=== PATIENT | female | born 1965 | race Caucasian/White ===

== ENCOUNTER 2019-08-12 09:33 | Emergency (ER) | payer BC ==
--- OUTSIDE RECORDS SUMMARY | 2019-08-12 09:39 | XMS REPORT | Continuity of Care Document ---
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 No Information Available Social History Type Date Description Comments Sex Unknown Tobacco Use Start: Unknown Never Smoked Cigarettes Smoking Status Reviewed: 08/04/19 Never Smoked Cigarettes ETOH Use Occasionally consumes alcohol Tobacco Use Start: Unknown Patient has never smoked Recreational Drug Use Never Used Drugs Exercise Type/Frequency Exercises regularly Allergies, Adverse Reactions, Alerts Active Allergies Reaction Severity Comments Date Amoxicillin Itching 08/04/2019 Medications Active Medications SIG Qnty Indications Ordering Provider Date Multi Vitamin 1 by mouth every Unknown Tablets day Immunizations Description No Information Available Vital Signs Date Vital Result Comment 08/04/2019 7:57am Height 63 inches 5'3" Weight 103.00 lb Heart Rate 71 /min BP Systolic 126 mmHg BP Diastolic 73 mmHg BMI (Body Mass Index) 18.2 kg/m2 Results Description No Information Available Procedures Description No Information Available Medical Devices Description No Information Available Encounters Description No Information Available Assessments Date Code Description Provider 08/04/2019 R73.01 Impaired fasting glucose Krishan Hedrick MD Plan of Treatment 08/04/2019 - Krishan Hedrick MDR73.01 Impaired fasting glucoseNew Labs:Glucose Tolerance 2HR, Ordered: 08/04/19Insulin Level, Ordered: 08/04/19Diabetes Mellitus Type 1 Eval, Ordered: 08/04/19C-Peptide, Ordered: 08/04/19C-Peptide, Scheduled: 08/04/19Instructions:1. Return for 2h glucose tolerance. 2. If glucose is 140-200, I recommend metformin. 3. If diabetes antibodies are present , I recommend glucose monitoring. 4. Return as needed. Functional Status Description No Information Available Mental Status Description No Information Available Referrals Description No Information Available
[2019-08-12 09:51] VITALS: BP 153/75
--- NOTE | 2019-08-12 09:54 | UC ---
Dizzy HPI HPI Summary: 54 yo female presents with complaints of blurry vision, shakiness, and feeling off balance. 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 These episodes will last <20-30minutes and resolve with rest. Not associated with physical activity , SOB, chest pain, n/v, headache. She has never had one of these instances at home. She had the school nurse check her BP during these episodes and noted it to be 130s-140s/80s-90s. Pt denies any PMHx, but is currently being worked up by her PCP and meter record clerk for a low insulin level. Fam hx with RI, CAD, HTN , DM2. She had an episode as described above this morning that lasted about 30minutes - prompting her visit to UC. - History Of Current Complaint Chief Complaint: UCGeneralIllness Stated Complaint: visual CHANGES, AND HIGH BLOOD PRESSURE Time Seen by Provider: 08/12/19 09:54 Hx Obtained From: Patient Onset/Duration: Sudden Onset Severity Currently: None Pain Intensity: 0 - Allergies/Home Medications Allergies/Adverse Reactions: Allergies Allergy/AdvReac Type Severity Reaction Status Date / Time amoxicillin Allergy Rash Verified 08/12/19 09:39 Home Medications: Home Medications NK [No Home Medications Reported] 08/12/19 [History Confirmed 08/12/19] PMH/Surg Hx/FS Hx/Imm Hx - Additional Past Medical History Additional PMH: None - Surgical History Surgical History: None - Family History Known Family History: Positive: Cardiac Disease, Hypertension, Diabetes - Social History Occupation: Employed Full-time Lives: With Family Alcohol Use: Daily Alcohol Amount: 1 glass of wine/ dinner Substance Use Type: None Smoking Status (MU): Never Smoked Tobacco Review of Systems All Other Systems Reviewed And Are Negative: No Constitutional: Positive: Negative Skin: Positive: Negative Eyes: Positive: Blurred Vision ENT: Positive: Negative Respiratory: Positive: Negative Cardiovascular: Positive: Negative Gastrointestinal: Positive: Negative Genitourinary: Positive: Negative Motor: Positive: Negative Neurovascular: Positive: Negative Musculoskeletal: Positive: Negative Neurological: Positive: Paresthesia Psychological: Positive: Negative Physical Exam - Summary Physical Exam Summary: GENERAL: NAD. WDWN. No pain distress. SKIN: No rashes, sores, ulcers, masses, lesions. HEENT: Head: AT/NC. No raccoon eyes or battles sign. Eyes: PERRLA. EOM intact. Conjunctiva clear without inflammation or discharge. Ears: Hearing grossly normal. TMs intact, no bulging, erythema, or edema. No hemotympanum Nose: Nasal mucosa pink and moist. NTTP maxillary and frontal sinus. Throat: Posterior oropharynx without exudates, erythema, or tonsillar enlargement. Uvula midline. NECK: Supple. Nontender. FROM CHEST: CTAB. No r/r/w. No accessory muscle use. Breathing comfortably and in no distress. CV: RRR. Pulses intact. Brisk cap refill. ABDOMEN: Soft. NTTP. Bowel sounds present MSK: FROM in B/L UEs and LEs with symmetric strength. NEURO: A&Ox3. 3 word recall, remote, recent memory, ability to follow 2-step directions, and attention intact. CN: II: Peripheral leblanc intact. Vision normal. III, IV, : EOMI. No nystagmus. PERRLA. V: Sensations intact and symmetric. Opens mouth and clenches teeth. VII: No facial asymmetry. Forehead wrinkles. Grins, shuts eyes, frowns, puffs cheeks. VIII: Hearing intact to finger rub. IX, X: Swallows and coughs. Uvula midline. XI: Shrugs shoulders. Turns head against resistance. XII: No tongue deviation [id number] are intact. Gait with normal base. Romberg: maintains balance, no pronator drift. Normal speech. No facial drooping. PSYCH: Age appropriate behavior. Triage Information Reviewed: Yes Vital Signs: Initial Vital Signs Temp 98.5 F 08/12/19 09:39 Pulse 69 08/12/19 09:39 Resp 18 08/12/19 09:39 BP 153/75 08/12/19 09:39 Pulse Ox 99 08/12/19 09:39 Vital Signs Reviewed: Yes National Institutes Of Health - NIH Scale Level of Consciousness: Alert/Keenly Responsive Ask Patient the Month and His/Her Age: Both Correct Ask Pt to Open/Close Eyes and Trial Court Justice/Release Non-Paretic Hand: Both Correctly Best Gaze (Only Horizontal Eye Movement): Normal Visual Field Testing: No Visual Loss Facial Paresis-Pt to Smile & Close Eyes or Grimace Symmetry: Normal/Symmetrical Motor Function - Right Arm: No Drift-Holds 10 Seconds Motor Function - Left Arm: No Drift-Holds 10 Seconds Motor Function - Right Leg: No Drift-Holds 10 Seconds Motor Function - Left Leg: No Drift-Holds 10 Seconds Limb Ataxia-Must be out of Proportion to Weakness Present: Absent Sensory (Use Pinprick to Test Arms/Legs/Trunk/Face): Normal Best Language (Describe Picture, Name Items): No Aphasia Dysarthria (Read Several Words): Normal Extinction and Inattention: No Abnormality Total Score: 0 Dizzy Course/Dx - Course Course Of Treatment: At this point, pt's symptoms are most concerning for TIAs. I discussed this with her and recommended further evaluation in the ED via ambulance transfer. She agreed to go to the ED now, but declined ambulance transfer. YOU HAVE DECLINED TRANSFER TO THE ER BY AMBULANCE. BE ADVISED THAT NOT TRAVELING IN A MONITORED SETTING YOU COULD BE RISKING WORSENING OF YOUR CONDITION THAT COULD POSE A THREAT TO YOUR LIFE, HEALTH, AND MEDICAL SAFETY. - Differential Dx/Diagnosis Provider Diagnosis: Vision changes Discharge ED - Sign-Out/Discharge Documenting (check all that apply): Patient Departure All imaging exams completed and their final reports reviewed: No Studies - Discharge Plan Condition: Stable Disposition: HOME-RECOMMEND TO ED Referrals: Cassie Balderas MD [Primary Care Provider] - Additional Instructions: Please go to the ER for further evaluation of your symptoms - Billing Disposition and Condition Condition: STABLE Disposition: Home-Recommend to ED
== END 2019-08-12 10:14 | disposition home health service (06) ==
LOC: UCEAST 09:33
DX: H53.8 Other visual disturbances (principal); R25.1 Tremor, unspecified; Z88.0 Allergy status to penicillin; Z82.49 Family history of ischemic heart disease and other diseases of the circulatory system; Z83.3 Family history of diabetes mellitus
CPT/HCPCS: 99212; G0463

== ENCOUNTER 2019-08-12 10:47 | Emergency (ER) | payer BC ==
--- NOTE | 2019-08-12 11:44 | ED ---
Hypertension - HPI Summary HPI Summary: This pt is a 54 y/o female presenting to [facility] [place] referred by [facility] c/o elevated blood pressure. Pt reports 2 days ago she was at work when she began feeling lightheaded with blurry vision and went to the school nurse who took her blood pressure, which was 130/69. She states she went home that day and rested and went to work the next day. Yesterday pt notes she got through the whole day of work and at the end of the day she began to feel shaky, lightheaded (feeling like passing out), with blurry vision. The school nurse took her blood pressure again and it was 140/69. Pt called her PCP yesterday but was not too concerned and was told to keep in touch. Pt went back to work this morning but began to feel lightheadedness and blurry vision again. 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 Currently she notes she does not feel terrible but "does not feel normal." She c/o headache behind her eyes, achy eyes. Denies chest pain, SOB, palpitations, nausea, vomiting, neck pain. She uses glasses for distance for driving. Pt went to Urgent Care and was sent to the ED. Denies any PMHx. However reports fasting glucose level of 112 and low insulin level. FHx of both parents with type 2 DM. Pt notes hx of 2 years ago when she had bleeding gums and was thought to have an autoimmune disease. She had a lot of testings done but they were not able to figure it out and she did not get a diagnosis. - History of Current Complaint Chief Complaint: EDHypertension Stated Complaint: BIGH BP, VISION ISSUES PER PT Time Seen by Provider: 08/12/19 10:57 Hx Obtained From: Patient Onset/Duration: Started Days Ago, Still Present Timing: Lasting Days Aggravating Factor(s): Nothing Alleviating Factor(s): Nothing Associated Signs & Symptoms: Other: - POSITIVE: achy eyesm, headache. NEGATIVE: chest pain, SOB, palpitations, nausea, vomiting, neck pain - Allergies/Home Medications Allergies/Adverse Reactions: Allergies Allergy/AdvReac Type Severity Reaction Status Date / Time amoxicillin Allergy Rash Verified 08/12/19 09:39 PMH/Surg Hx/FS Hx/Imm Hx Endocrine/Hematology History: Denies: Hx Diabetes Cardiovascular History: Denies: Hx Hypertension - Cancer History Hx Chemotherapy: No Hx Radiation Therapy: No - Surgical History Surgical History: None Infectious Disease History: Yes Infectious Disease History: Denies: Traveled Outside the [place] in Last 30 Days - Family History Known Family History: Positive: Cardiac Disease, Hypertension, Diabetes - both parents with type 2 DM Family History: Sister with psoriatic arthritis. - Social History Alcohol Use: Daily Alcohol Amount: 1 glass of wine/ dinner Substance Use Type: Reports: None Smoking Status (MU): Never Smoked Tobacco Review of Systems Negative: Fever, Chills Eyes: Other - POSITIVE: eyes feel achy Positive: Blurred Vision Negative: Palpitations, Chest Pain Negative: Shortness Of Breath Negative: Vomiting, Nausea Negative: Other - NEGATIVE: neck pain Neurological: Other - POSITIVE: lightheadedness Positive: Headache All Other Systems Reviewed And Are Negative: Yes Physical Exam - Summary Physical Exam Summary: VITAL SIGNS: Reviewed. GENERAL: Patient is a well-developed and nourished female who is lying comfortable in the stretcher. Patient is not in any acute respiratory distress. HEAD AND FACE: No signs of trauma. No ecchymosis, hematomas or skull depressions. No sinus tenderness. EYES: PERRLA, EOMI x 2, No injected conjunctiva, no nystagmus. EARS: Hearing grossly intact. Ear canals and tympanic membranes are within normal limits. MOUTH: Oropharynx within normal limits. NECK: Supple, trachea is midline, no adenopathy, no JVD, no carotid bruit, no c- spine tenderness, neck with full ROM. CHEST: Symmetric, no tenderness at palpation. LUNGS: Clear to auscultation bilaterally. No wheezing or crackles. CVS: Regular rate and rhythm, S1 and S2 present, no murmurs or gallops appreciated. ABDOMEN: Soft, non-tender. No signs of distention. No rebound, no guarding, and no masses palpated. Bowel sounds are normal. EXTREMITIES: FROM in all major joints, no edema, no cyanosis or clubbing. NEURO: Alert and oriented x 3. No acute neurological deficits. Speech is normal and follows commands. SKIN: Dry and warm. Triage Information Reviewed: Yes Vital Signs On Initial Exam: Initial Vitals Temp Pulse Resp BP Pulse Ox 98.6 F 70 19 150/58 100 08/12/19 10:49 08/12/19 10:49 08/12/19 10:49 08/12/19 10:49 08/12/19 10:49 Vital Signs Reviewed: Yes Procedures - Sedation Patient Received Moderate/Deep Sedation with Procedure: No Diagnostics - Vital Signs Vital Signs Temp Pulse Resp BP Pulse Ox 08/12/19 10:49 98.6 F 70 19 150/58 100 - Laboratory Result Diagrams: 08/12/19 12:01 08/12/19 12:01 Lab Statement: Any lab studies that have been ordered have been reviewed, and results considered in the medical decision making process. - Radiology Chest XR Radiology Interpretation Completed By: Radiologist Summary of Radiographic Findings: IMPRESSION: Hyperinflation. No active cardiopulmonary disease. Dr. Gonzales has reviewed this report. - EKG 12:01 Cardiac Rate: NL - at 74 bpm EKG Rhythm: Sinus Rhythm EKG Comparison: Other - No prior EKG for comparison. Summary of EKG Findings: Normal sinus rhythm at 74 bpm. Incomplete RBBB. No ST elevations. No prior EKGs for comparison. Re-Evaluation - Re-Evaluation First Eval Re-Evaluation Time: 13:13 Comment: Reviewed results with pt. Discussed Dr. Balderas's recommendations and discharge plan with pt. She will be discharged home with follow up from PCP. Hypertension Course/Dx - Course Assessment/Plan: This pt is a 54 y/o female presenting to [facility] [place] referred by [facility] c/o elevated blood pressure. Pt reports 2 days ago she was at work when she began feeling lightheaded with blurry vision and went to the school nurse who took her blood pressure 130/69. She states she went home that day and rested and went to work the next day. Yesterday pt notes she got through the whole day of work and at the end of the day she began to feel shaky, lightheaded (feeling like passing out), with blurry vision. The school nurse took her blood pressure again and it was 140/69. Pt called her PCP yesterday but was not too concerned and was told to keep in touch. Pt went back to work this morning but began to feel lightheadedness and blurry vision again. 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 Currently she notes she does not feel terrible but "does not feel normal." She c/o headache behind her eyes, achy eyes. Denies chest pain, SOB, palpitations, nausea, vomiting, neck pain. Pt uses glasses for distance for driving. Pt went to Urgent Care and was sent to the ED. Denies any PMHx. Blood work without any significant abnormality except for glucose of 234. Chest x-ray impression: Hyperinflation. No active cardiopulmonary disease. The patients blood pressure in the ED ranges between 143/69 and 128/70. Therefore I discussed my physical exam findings and test results with Dr. Balderas the patients primary care physician and she recommends no treatment for the hyperglycemia until she follows up with her and also the reproduction technician. I discussed all the findings and test results with the patient. Patient was instructed to return to the emergency room immediately if any of the symptoms return or worsen. Plan of care was discussed with the patient and understands and agrees. All questions were answered at patient satisfaction. There were no further complaints or concerns. Lung exam before discharge: CTA B/L. Good air exchange. No wheezing or crackles heard. CVS: S1 and S2 present. No murmurs appreciated. Patient is alert and oriented x 3. Patient is hemodynamically stable. Patient will be discharged home with follow up from her PCP in the next 2-3 days. - Diagnoses Differential Diagnosis/HQI PQRI: Hypertension, Hypertensive Crisis, Hypertensive Urgency, Hyperthyroidism Provider Diagnoses: Uncontrolled hypertension, Hyperglycemia - Physician Notifications Discussed Care Of Patient With: Cassie Balderas Time Discussed With Above Provider: 13:03 Instructed by Provider To: Other - Discussed the case with Dr. Balderas, pt's PCP , who recommends no treatment for pt's hyperglycemia and discharge the pt home. Dr. Balderas will get in touch with the reproduction technician in order to see best treatment for the pt. Discharge ED - Sign-Out/Discharge Documenting (check all that apply): Patient Departure - Discharge home - Discharge Plan Condition: Stable Disposition: HOME Patient Education Materials: Nondiabetic Hyperglycemia (ED) Referrals: Cassie Balderas MD [Primary Care Provider] - Additional Instructions: Follow up with your primary care provider in 2-3 days. RETURN TO THE ED FOR ANY WORSENING OR NEW SYMPTOMS. - Billing Disposition and Condition Condition: STABLE Disposition: Home - Attestation Statements Document Initiated by Scribe: Yes Documenting Scribe: Zoe Beckett Provider For Whom Scribe is Documenting (Include Credential): Ike Gonzales MD Scribe Attestation: Zoe Heart, scribed for Ike Gonzales MD on 08/12/19 at 1826. Scribe Documentation Reviewed: Yes Provider Attestation: The documentation as recorded by the scribeZoe accurately reflects the service I personally performed and the decisions made by me, Ike Gonzales MD Status of Scribe Document: Viewed
[2019-08-12 12:09] LABS: ABS Lymphocytes 0.9 10^3/ul (1.0-4.8); ABS Monocytes 0.2 10^3/ul (0-0.8); Eosinophil % 1.1 %; Hematocrit 40 % (35-47); Hemoglobin 13.4 g/dL (12.0-16.0); Lymphocyte % 22.1 %; Mean Corpuscular HGB Conc 34 g/dL (31-36); Mean Corpuscular Hemoglobin 30 pg (27-31); Mean Corpuscular Volume 88 fL (80-97); Mean Platelet Volume 8.9 fL (7.4-10.4); Platelet Count 175 10^3/uL (150-450); Red Blood Count 4.49 10^6 /uL (3.70-4.87); Red Cell Distribution Width 13 % (10-15); White Blood Count 4.2 10^3/uL (3.5-10.8)
[2019-08-12 12:27] LABS: Albumin 4.3 g/dL (3.2-5.2); BUN/Creatinine Ratio 19.7 (8-20); EGFR African American 123.2 (>60); EGFR Non-African American 101.8 (>60); Globulin 2.1 g/dL (2-4); Potassium 3.8 mmol/L (3.5-5.0); Total Bilirubin 0.5 mg/dL (0.2-1.0); Total Protein 6.4 g/dL (6.4-8.9)
[2019-08-12 12:32] LABS: CKMB ng/mL 1.6 ng/mL (0.6-6.3)
[2019-08-12 13:34] VITALS: BP 142/83
== END 2019-08-12 13:30 | disposition home or self-care (01) ==
LOC: ED 10:47
DX: I10 Essential (primary) hypertension (principal); R73.9 Hyperglycemia, unspecified; H53.8 Other visual disturbances; R51 Headache; R94.31 Abnormal electrocardiogram [ECG] [EKG]
CPT/HCPCS: 36415; 71045; 80053; 82553; 83605; 83880; 84484; 84681; 85025; 93005; 99282